=== PATIENT | female | born 1985 | race Caucasian/White ===

== ENCOUNTER 2016-05-04 08:00 | Inpatient (IN) | payer OTHER ==
[~2016-05-04] VITALS: Ht 160 cm; Wt 130.0 kg
[2016-05-04 09:49] VITALS: Ht 160 cm; Wt 130.0 kg
--- NOTE | 2016-05-04 09:57 | ERA ---
ER Documentation Chief Complaint Date/Time DATE: 05/04/16 TIME: 09:55 Chief Complaint SENT FROM [facility] FOR EVAL POST DELIVERY. BABY DELIVERED IN [place] HPI This is a 30-year-old female at approximately 38 weeks who delivered at [facility]. The patient had her child in the parking lot there. She was stabilized and passed her placenta. The patient was transferred here for higher level of care. The patient is currently resting comfortably. She describes mild lower abdominal cramping and small amount of bleeding. She denies significant care for this . She denies any fevers chills, no headache or shortness of breath. ROS All systems reviewed and are negative except as per history of present illness. Medications Home Meds No Active Prescriptions or Reported Meds Allergies Allergies: Coded Allergies: No Known Allergy (Unverified , 05/04/16) PMhx/Soc Medical and Surgical Hx: pt denies Medical Hx, pt denies Surgical Hx Hx Alcohol Use: No Hx Substance Use: No Hx Tobacco Use: No Smoking Status: Never smoker FmHx Family History: No diabetes Physical Exam Vitals Vital Signs Date Time Temp Pulse Resp B/P Pulse Ox O2 Delivery O2 Flow Rate FiO2 05/04/16 08:16 97.1 89 19 123/79 100 Physical Exam General: Well developed, well nourished, no acute distress Head: Normocephalic, atraumatic. 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 The patient has a small amount of bleeding. Dr. Dominguez is at bedside to evaluate the patient. She has no evidence of significant life- threatening hemorrhage. The patient is hemodynamically stable and will be transferred to labor and delivery. Further management and care per OB team. I kept the patient and/or family informed of laboratory and diagnostic imaging results throughout the emergency room course. DISPOSITION PLAN: Accepting care team and consultations: I discussed the current laboratory data, diagnostic imaging and emergency care provided. Admitting team: Dr. Dominguez Admitting team indication: Insurance directed Departure Diagnosis: Primary Impression: Normal spontaneous vaginal delivery Condition: Stable MADIE MADISON MD May 04, 2016 09:57
[2016-05-04] MEDS ORDERED: OXYTOCIN 30 UNITS/LR 500 ML IV PRN ×2 (10:30→11:30)
[2016-05-04] MEDS ORDERED: IBUPROFEN 600 MG TAB PO PRN (10:30)
[2016-05-04] MEDS ORDERED: CARBOPROST 250 MCG INJ IM PRN ×2 (10:30→11:30)
[2016-05-04] MEDS ORDERED: LIDOCAINE 1% (MPF) 30 ML INJ INJ PRN (10:30)
[2016-05-04] MEDS ORDERED: MISOPROSTOL 200 MCG TAB PR PRN ×2 (10:30→11:30)
[2016-05-04] MEDS ORDERED: METHYLERGONOVINE 0.2 MG INJ IM PRN ×2 (10:30→11:30)
[2016-05-04 10:37] LABS: ADD SCAN DIFF NO
[2016-05-04 10:41] LABS: BASOPHILS % 0.3 % (0.0-2.0); EOSINOPHILS % 0.1 % (0.0-7.0); HEMATOCRIT 33.6 % (37.0-47.0); LYMPHOCYTES # 1.4 10^3/ul (0.8-2.9); MEAN CORPUSCULAR HEMOGLOBIN 25.8 pg (29.0-33.0); MEAN CORPUSCULAR HGB CONC 32.7 g/dl (32.0-37.0); MEAN CORPUSCULAR VOLUME 78.7 fl (82.0-101.0); MONOCYTE # 0.6 10^3/ul (0.3-0.9); MONOCYTES % 5.1 % (0.0-11.0); NEUTROPHIL # 9.8 10^3/ul (1.6-7.5); NEUTROPHILS % 82.2 % (39.0-77.0); PLATELET COUNT 363 10^3/UL (140-415); RED BLOOD COUNT 4.27 10^6/ul (4.20-5.40); RED CELL DISTRIBUTION WIDTH 16.3 % (11.5-14.5); WHITE BLOOD COUNT 11.9 10^3/ul (4.8-10.8)
[2016-05-04 10:54] LABS: INR 0.93; PROTIME 12.5 Sec (12.2-14.2)
[2016-05-04 10:55] LABS: PARTIAL THROMBOPLASTIN TIME 25.5 Sec (25.0-35.0)
[2016-05-04] MEDS ORDERED: LACTATED RINGER'S 1,000 ML IV* SCH (11:14)
--- NOTE | 2016-05-04 11:14 | HP ---
Date/Time of Note Date/Time of Note DATE: 05/04/16 TIME: 10:59 OB - History Hx of Present Free Text/Dictation Pt is a 30yo PPD#0 s/p precipitous in her car in the parking lot of [facility]. Pt reports baby delivered followed by the placenta. Denies severe pain or bleeding. Pt was transferred from [facility]'s ED to [facility] ED for further evaluation and for admission. Per pt, she realized she was at 7mths of while living in [place]. She came to [place] approximately 1 mth ago and established care at a clinic where she had an U/S. Per pt, her EDC was 05/10/16. Estimated Due Date: May 10, 2016 : 3 Para: 3 Care: Limited Care Ultrasounds: Other (No U/S available) Obstetrical Complications: None Medical Complications: None Past Family/Social History * Past Medical, Surgical, Family and Obstetric Histories reviewed with patient. chart not available. Blood Type: Unknown Rubella: unknown RPR/VDRL: Unknown GBS Status: Unknown HBsAG: Unknown OB Admission Exam Vital Signs Vital Signs Vital Signs Date Time Temp Pulse Resp B/P Pulse Ox O2 Delivery O2 Flow Rate FiO2 05/04/16 09:16 85 18 137/96 98 Room Air 05/04/16 08:16 97.1 Vaginal and perineal exam notable for 2nd degree perineal laceration Physical Exam HEENT: WNL Heart: Rhythm Normal Lungs: Clear Abdomen: WNL (fundus difficult to palpate 2/2 maternal obesity) Extremities: Edema (1+ bilateral LE pitting edema, nontender and symmetric BLE) Last 72 hours Lab Results CBC & BMP 05/04/16 10:29 OB Assessment/Plan Other Assessment: Day #0 s/p precipitous unattended of liveborn male infant 2nd degree perineal laceration Other plan: Perineal laceration repaired in the usual fashion using 3-0 Vicryl suture with local anesthetic Vaginal bleeding minimal s/p perineal repair Admit to Unit for routine care Monitor BPs Labs ordered GUEST SERVICE MANAGER consult 2/2 recent of patient's FIDE PONCE MD May 04, 2016 11:14
[2016-05-04] MEDS ORDERED: LANOLIN 7 GM TUBE TOP PRN (11:30)
[2016-05-04] MEDS ORDERED: BENZOCAINE 20% 56 ML SPRAY TOP PRN (11:30)
[2016-05-04] MEDS ORDERED: DIPHENHYDRAMINE 50 MG INJ IV PRN (11:30)
[2016-05-04] MEDS ORDERED: SENNA/DOCUSATE NA (8.6MG/50MG) TAB PO PRN (11:30)
[2016-05-04] MEDS ORDERED: DIBUCAINE 1% 30 GM OINT PR PRN (11:30)
[2016-05-04] MEDS ORDERED: ONDANSETRON 4 MG INJ IV PRN (11:30)
[2016-05-04] MEDS ORDERED: ACETAMINOPHEN 325 MG TAB PO PRN (11:30)
[2016-05-04 12:45] VITALS: BP 126/71; PULSE 80; RESP 18
[2016-05-04] MEDS: IBUPROFEN 600 MG TAB PO SCH ×2 (13:15→17:11)
[2016-05-04 14:56] LABS: BARBITURATES Negative (NEGATIVE); BENZODIAZEPINES Negative (NEGATIVE); CANNABINOIDS Negative (NEGATIVE); COCAINE Negative (NEGATIVE); OPIATES Negative (NEGATIVE)
[2016-05-04 15:30] VITALS: BP 120/64; PULSE 85; RESP 20
[2016-05-04 20:00] VITALS: BP 121/58; PULSE 87; RESP 18
[2016-05-05] MEDS: IBUPROFEN 600 MG TAB PO SCH ×3 (00:30→11:52)
[2016-05-05 04:00] VITALS: BP 107/65; PULSE 77; RESP 20
[2016-05-05 07:41] LABS: ADD SCAN DIFF NO
[2016-05-05 07:43] LABS: BASOPHIL # 0.1 10^3/ul (0.0-0.1); BASOPHILS % 0.5 % (0.0-2.0); EOSINOPHILS # 0.2 10^3/ul (0.0-0.5); EOSINOPHILS % 1.6 % (0.0-7.0); HEMATOCRIT 32.2 % (37.0-47.0); HEMOGLOBIN 10.2 g/dl (12.0-16.0); LYMPHOCYTES # 4.5 10^3/ul (0.8-2.9); LYMPHOCYTES % 39.7 % (15.0-51.0); MEAN CORPUSCULAR HEMOGLOBIN 25.4 pg (29.0-33.0); MEAN CORPUSCULAR HGB CONC 31.7 g/dl (32.0-37.0); MEAN CORPUSCULAR VOLUME 80.1 fl (82.0-101.0); MEAN PLATELET VOLUME 9.6 fl (7.4-10.4); MONOCYTE # 0.7 10^3/ul (0.3-0.9); MONOCYTES % 5.7 % (0.0-11.0); NEUTROPHIL # 5.9 10^3/ul (1.6-7.5); NEUTROPHILS % 52.1 % (39.0-77.0); PLATELET COUNT 326 10^3/UL (140-415); RED BLOOD COUNT 4.02 10^6/ul (4.20-5.40); RED CELL DISTRIBUTION WIDTH 16.7 % (11.5-14.5); WHITE BLOOD COUNT 11.4 10^3/ul (4.8-10.8)
[2016-05-05 08:29] VITALS: BP 117/58; PULSE 97; RESP 18
--- NOTE | 2016-05-05 11:09 | PD.PPDC ---
[employer] MAINTENANCE CHIEF Discharge Instruction Condition Patient Condition: Good Diet Diet: Resume Regular Diet Activity/Restrictions Activity: Normal Activity May Shower Restrictions: No Sexual Activity Nothing in the Vagina No [place] No Tampons, douche Follow-up Follow-up with Physician: 6, Week/Weeks Return to clinic for BROADCAST OPERATIONS MANAGER Instructions: Fever greater than 101 Chills Worsening abdominal pain Excessive Vaginal Bleeding OB Instructions: Breast Tenderness Depression GAURAV KAY MD May 05, 2016 11:09
--- NOTE | 2016-05-05 11:12 | DS ---
Date/Time of Note Date/Time of Note DATE: 05/05/16 TIME: 11:10 Obstetrical Discharge Record Final Diagnosis Final Diagnosis: Term delivered Other Final Diagnosis Baby for adoption. BOA in parking lot at [facility]. Vaginal Delivery Obstetrical Delivery: Spontaneous Complications Augmentation: No Induction: No Condition on Discharge Physical Assessment Last Vitals: T+98.0 BP 117/58 Voiding: Yes Bowel Movement: Yes Breast: Soft, non-tender Fundus: Firm Calf Tenderness: No Patient Condition: GAURAV Haynes MD May 05, 2016 11:12
[2016-05-05 12:55] LABS: RUBELLA ANTIBODY - IGG <0.90 index
[2016-05-05] MEDS ORDERED: INFLUENZA VIRUS VACCINE 0.5 ML SYG IM* ONE (16:00)
[2016-05-06] MEDS ORDERED: DIPHTH/TET/ACEL PERTUSS (ADULT) 0.5 ML VIAL IM* ONE (09:00)
== END 2016-05-05 16:00 | disposition home or self-care (01) | DRG 775 ==
LOC: E/R 08:00 → L-D 09:15 → PP1 12:49
PROVIDERS: ADMIT Obstetrics & Gynecology; ATTEND Obstetrics & Gynecology
PROC: 0KQM0ZZ Repair Perineum Muscle, Open Approach (ICD-10-PCS; principal; 2016-05-04)
DX: Z39.0 Encounter for care and examination of mother immediately after delivery (principal); Z37.0 Single live birth; O70.1 Second degree perineal laceration during delivery; Z3A.38 38 weeks gestation of pregnancy
CPT/HCPCS: 80307; 85025; 85610; 85730; 86592; 86703; 86762; 86850; 86900; 86901; 87340; 90686; J7120

== ENCOUNTER 2018-08-26 21:38 | Inpatient (IN) | payer OTHER ==
[~2018-08-26] VITALS: Ht 165.1 cm; Wt 175.6 kg
[2018-08-26] MEDS ORDERED: PREN-19 PO (23:03)
[2018-08-26 23:30] VITALS: BP 124/64; PULSE 92; RESP 20
--- NOTE | 2018-08-27 02:44 | HP ---
Date/Time of Note Date/Time of Note DATE: 08/27/18 TIME: 02:41 OB - History Hx of Present Chief Complaint: contractions Estimated Due Date: Aug 24, 2018 : 3 Para: 2 Spontaneous : 0 Therapeutic : 0 Care: None Ultrasounds: No ultrasounds Obstetrical Complications: None Medical Complications: None Past Family/Social History * Past Medical, Surgical, Family and Obstetric Histories reviewed from chart. GBS Status: Unknown OB Admission Exam Vital Signs Vital Signs Vital Signs Date Temp Pulse Resp B/P (MAP) Pulse Ox O2 O2 Flow FiO2 Time Delivery Rate 08/26/18 98.1 92 20 124/64 Room Air 23:30 (84) Physical Exam HEENT: WNL Heart: Rhythm Normal Lungs: Clear, Equal Abdomen: WNL Extremities: Normal Reflexes: Normal Cervical Dilatation: None Effacement: 50% Station: -3 Membranes: Intact Heart Rate: 120's Accelerations: Accelerations Present Decelerations: No Decelerations Varibility: Moderate OB Assessment/Plan Reason for admission: other Other Assessment: No care post CASSIE per patient Plan: Expectant Management, Other Other plan: Perinatology consult MARTHA CASTELLON MD Aug 27, 2018 02:44
[2018-08-27] MEDS ORDERED: LACTATED RINGER'S 1,000 ML IV PRN (02:49)
[2018-08-27] MEDS ORDERED: LACTATED RINGER'S 1,000 ML IV SCH (02:49)
[2018-08-27] MEDS ORDERED: AMPICILLIN 2 GM/NS (PMX) 100 ML IV ONE (03:00)
[2018-08-27] MEDS ORDERED: CARBOPROST 250 MCG INJ IM PRN (03:00)
[2018-08-27] MEDS ORDERED: MINERAL OIL LIGHT 10 ML VIAL TOP ONE (03:00)
[2018-08-27] MEDS ORDERED: METHYLERGONOVINE 0.2 MG INJ IM PRN (03:00)
[2018-08-27] MEDS ORDERED: BUTORPHANOL 2 MG INJ IV PRN ×2 (03:00)
[2018-08-27] MEDS ORDERED: IBUPROFEN 600 MG TAB PO PRN (03:00)
[2018-08-27] MEDS ORDERED: LIDOCAINE 1% (MPF) 30 ML INJ INJ PRN (03:00)
[2018-08-27] MEDS ORDERED: OXYTOCIN 30 UNITS/LR 500 ML IV SCH ×2 (03:00)
[2018-08-27] MEDS ORDERED: MISOPROSTOL 200 MCG TAB PR PRN (03:00)
[2018-08-27] MEDS ORDERED: OXYTOCIN 30 UNITS/LR 500 ML IV PRN (03:00)
[2018-08-27] MEDS ORDERED: AMPICILLIN 1 GM/NS (PMX) 50 ML IV SCH (07:00)
--- NOTE | 2018-08-27 11:44 | PN ---
Date/Time of Note Date/Time of Note DATE: 08/27/18 TIME: 11:14 OB Subjective Subjective Subjective Patient seen and examined. She states good movement. She denies nausea, vomiting, shortness of breath, chest pain, abdominal pain, headache, visual changes, vaginal bleeding or LOF. OB Objective Objective Objective General: Patient appears well, alert and oriented, NAD, appropriate mood and affect ABD: gravid, soft, non-tender. Back: No CVA tenderness (B/L) LE: M0d edema. No clubbing, cyanosis, edema, thigh or calf tenderness bilaterally FHT: 135 bpm , moderate variability with acceleration, no deceleration-category I Contractions: None SVE: Closed/30/high/ceph/intact membrane OB Assessment/Plan Other plan: 32 Year-old G 3 para 2-0-0-2 with SIUP at 40 weeks and 3 days ( by one ultrasound which done at [facility]) admitted for postdate - FHR: Reassuring. No sign of metabolic acidosis- Category I - Contractions: None - Continuous EFM, toco - She had no care - UDS: neg - She is planning to give the baby for adoption, social media marketing analyst is involved - Ultrasound performed DANIELITO of 6.1 2) Obesity- BMI of 64.4 kg/meter2, LGA and suspected macrosomia: She is at significant risk for complications at the time of the delivery including shoulder dystocia with risk of fracture of the clavicle, humerus and damage to the nerves of the brachial plexus, risk of morbidity for , hemorrhage, very high risk for possible section/possible Casserian-Hysterectomy and at a further risk for postop complications including wound infection, deep vein thromboses and pulmonary embolism discussed with patient. The patient would benefit from delivery/ to a higher level of care at a [facility]. She understand persistent injury is more common with higher weights, and weights greater than 4,500 gram in particular. She would like to go to [facility]. She is currently hemodynamically stable.Symptoms and sign of labor, preeclampsia, kick count discussed with patient, she voiced understanding. All of her questions answered. Patient was discharged home in stable condition with the appropriate discharge instructions provided. DESI HICKMAN Aug 27, 2018 11:39
--- NOTE | 2018-08-27 11:45 | DS ---
Date/Time of Note Date/Time of Note DATE: 08/27/18 TIME: 11:45 Obstetrical Discharge Record Final Diagnosis Final Diagnosis: Term not delivered Other Final Diagnosis 32 Year-old G 3 para 2-0-0-2 with SIUP at 40 weeks and 3 days ( by one ultrasound which done at [facility]) admitted for postdate - FHR: Reassuring. No sign of metabolic acidosis- Category I - Contractions: None - Continuous EFM, toco - She had no care - UDS: neg - She is planning to give the baby for adoption, renal social worker is involved - Ultrasound performed DANIELITO of 6.1 2) Obesity- BMI of 64.4 kg/meter2, LGA and suspected macrosomia: She is at significant risk for complications at the time of the delivery including shoulder dystocia with risk of fracture of the clavicle, humerus and damage to the nerves of the brachial plexus, risk of morbidity for infant, hemorrhage, very high risk for possible section/possible Casserian-Hysterectomy and at a further risk for postop complications including wound infection, deep vein thromboses and pulmonary embolism discussed with patient. The patient would benefit from delivery/ to a higher level of care at a [place] [facility]. She understand persistent injury is more common with higher weights, and weights greater than 4,500 gram in particular. She would like to go to [facility]. She is currently hemodynamically stable.Symptoms and sign of labor, preeclampsia, kick count discussed with patient, she voiced understanding. All of her questions answered. Patient was discharged home in stable condition with the appropriate discharge instructions provided. Condition on Discharge Physical Assessment Last Vitals: Vital Signs Date Temp Pulse Resp B/P (MAP) Pulse Ox O2 O2 Flow FiO2 Time Delivery Rate 08/26/18 98.1 92 20 124/64 Room Air 23:30 (84) Voiding: Yes Bowel Movement: Yes Calf Tenderness: No Patient Condition: Stable DESI HICKMAN Aug 27, 2018 11:45
== END 2018-08-27 11:40 | disposition home or self-care (01) | DRG 832 ==
LOC: OBT 21:38 → L-D 21:39 → OBT 08-27 02:40 → L-D 08-27 02:40
PROVIDERS: ADMIT Obstetrics & Gynecology; ATTEND Obstetrics & Gynecology
DX: O48.0 Post-term pregnancy (principal); Z68.44 Body mass index [BMI] 60.0-69.9, adult
CPT/HCPCS: 76815; 76818; 80053; 80307; 81001; 83036; 85025; 85610; 85730; 86592; 86703; 86762; 86850; 86900; 86901; 87340; G0463; J7120